=== PATIENT | male | born 2005 | race Caucasian/White ===

== ENCOUNTER 2025-05-29 20:38 | Emergency (ER) | payer OTHER ==
[2025-05-29 21:11] LABS: Absolute Lymphocytes (CBC) 2.1 K/uL (0.7-4.9); Hematocrit 35.6 % (39.6-49.0); Hemoglobin 12.2 g/dL (13.6-17.9); MCH 32.7 pg (27.0-35.0); MCHC 34.3 g/dL (32.0-36.0); MCV 95.4 fL (80-100); MPV 7.9 fL (7.6-11.3); Nucleated Red Blood Cells % 0.0 % (0-0); RBC Red Blood Cell Count 3.74 M/uL (4.33-5.43); White Blood Count 6.10 thou/uL (4.3-10.9)
[2025-05-29 21:12] LABS: Nucleated RBC Absolute Count 0.0 (0-0)
[2025-05-29 21:30] LABS: ALT/SGPT 21.0 U/L (16-61); AST/SGOT 13.0 U/L (15-37); Albumin 3.5 g/dL (3.4-5.0); Albumin/Globulin Ratio 1.0 (1.1-1.8); Alkaline Phosphatase 69.0 U/L (45-117); Anion Gap 6.9 mEq/L (5.0-15.0); BUN Blood Urea Nitrogen 11.0 mg/dL (7-18); Globulin 3.4 g/dL (2.3-3.5); Glucose Level 164.0 mg/dL (74-106); Lipase 21.0 U/L (13-75); Potassium 3.9 mEq/L (3.5-5.1)
--- NOTE | 2025-05-29 21:59 | ER ---
Nurse's Notes [facility] Name: Dada Noel Age: 20 yrs Sex: Male : 2005 Arrival Date: 05/29/2025 Time: 20:38 Bed 8 Private MD: Diagnosis: Abdominal pain, Generalized Presentation: 05/29 20:43 Chief complaint: Patient states: chest pain and abdominal pain with nausea this lg3 morning. 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 250 D10 administered. On arrival to ED BGL 141. Coronavirus screen: Client denies travel out of the [place] in the last 14 days. At this time, the client does not indicate any symptoms associated with coronavirus-19. Ebola Screen: No symptoms or risks identified at this time. Initial Sepsis Screen: Does the patient meet any 2 criteria? No. Patient's initial sepsis screen is negative. Does the patient have a suspected source of infection? No. Patient's initial sepsis screen is negative. Risk Assessment: Do you want to hurt yourself or someone else? Patient reports no desire to harm self or others. Onset of symptoms was May 29, 2025. 20:43 Method Of Arrival: EMS: [facility] lg3 20:43 Acuity: TERRELL 3 lg3 Triage Assessment: 20:45 General: Appears in no apparent distress. comfortable, Behavior is calm, cooperative. lg3 General: Appears unkempt. Pain: Complains of pain in chest and abdomen. EENT: No deficits noted. No signs and/or symptoms were reported regarding the EENT system. Neuro: No deficits noted. Clifford Agitation-Sedation Scale (RASS): 0 - Alert and Calm Level of Consciousness is awake, alert, obeys commands, Oriented to person, place, time, situation. Cardiovascular: No deficits noted. Heart tones S1 S2 present Capillary refill < 3 seconds Clubbing of nail beds is absent JVD is absent Patient's skin is warm and dry. Respiratory: No deficits noted. Airway is patent Respiratory effort is even, unlabored, Respiratory pattern is regular, symmetrical, Breath sounds are clear bilaterally. GI: No deficits noted. Abdomen is flat, non-distended, Reports lower abdominal pain, upper abdominal pain, nausea. : No signs and/or symptoms were reported regarding the genitourinary system. Derm: No deficits noted. No signs and/or symptoms reported regarding the dermatologic system. Skin is intact, is healthy with good turgor, Skin is dry, Skin is normal, Skin temperature is warm. Musculoskeletal: No deficits noted. No signs and/or symptoms reported regarding the musculoskeletal system. Circulation, motion, and sensation intact. Range of motion: intact in all extremities. Historical: - Allergies: 20:45 No Known Allergies; lg3 - Home Meds: 20:45 None [Active]; lg3 - PMHx: 20:45 autism; ADHD; lg3 - PSHx: 20:45 None; lg3 - Immunization history:: Adult Immunizations up to date. - Infectious Disease History:: Denies. - Social history:: Smoking status: Patient denies any tobacco usage or history of. Patient/guardian denies using alcohol, street drugs. Screenin:47 [facility] ED Fall Risk Assessment (Adult) History of falling in the last 3 months, lg3 including since admission No falls in past 3 months (0 pts) Confusion or Disorientation No (0 pts) Intoxicated or Sedated No (0 pts) Impaired Gait No (0 pts) Mobility Assist Device Used No (0 pt) Altered Elimination No (0 pt) Score/Fall Risk Level 0 - 2 = Low Risk Oriented to surroundings, Maintained a safe environment, Educated pt \T\ family on fall prevention, incl call for assistance when getting out of bed, Assessed \T\ reinforced patient's understanding of fall precautions. Abuse screen: Denies threats or abuse. Denies injuries from another. Nutritional screening: No deficits noted. Tuberculosis screening: No symptoms or risk factors identified. Assessment: 20:47 General: see triage assessment. lg3 21:24 Reassessment: Patient appears in no apparent distress at this time. No changes from lg3 previously documented assessment. Patient and/or family updated on plan of care and expected duration. Pain level reassessed. Patient is alert, oriented x 3, equal unlabored respirations, skin warm/dry/pink. 21:59 Reassessment: Patient appears in no apparent distress at this time. No changes from lg3 previously documented assessment. Patient and/or family updated on plan of care and expected duration. Pain level reassessed. Patient is alert, oriented x 3, equal unlabored respirations, skin warm/dry/pink. Patient states feeling better. Patient states symptoms have improved. Vital Signs: 20:43 BP 125 / 74; Pulse 87; Resp 16 S; Temp 98(A); Pulse Ox 100% on R/A; Weight 86.18 kg lg3 (R); Height 6 ft. 5 in. (R); 21:24 BP 121 / 74; Pulse 81; Resp 16 S; Pulse Ox 100% on R/A; lg3 22:00 BP 126 / 71; Pulse 77; Resp 16 S; Pulse Ox 100% on R/A; lg3 20:43 Body Mass Index 22.53 (86.18 kg, 195.58 cm) lg3 ED Course: 20:38 Patient arrived in ED. lg3 20:40 Patricia Khalil RN is Primary Nurse. kb4 20:44 iWlian Means DO is Attending Physician. tt7 20:45 Triage completed. lg3 20:45 Arm band placed on right wrist. lg3 20:47 Patient has correct armband on for positive identification. Placed in gown. Bed in low lg3 position. Call light in reach. Side rails up X 1. Client placed on continuous cardiac and pulse oximetry monitoring. NIBP monitoring applied. manager gyn on. Door closed. Noise minimized. Warm blanket given. Pillow given. 20:47 Maintain EMS IV. Dressing intact. Good blood return noted. Site clean \T\ dry. Gauge \T\ lg 3 site: 18 LAC. Flushed with 10 mL NS. 22:14 No provider procedures requiring assistance completed. IV discontinued, intact, lg3 bleeding controlled, No redness/swelling at site. Pressure dressing applied. Administered Medications: 21:07 Drug: Droperidol IVP 1.25 mg IVP once Route: IVP; Site: left antecubital; lg3 22:00 Follow up: Response: No adverse reaction; RASS: Alert and Calm (0) lg3 21:51 Not Given (Physician Discretion): ativan0.5 mg IVP once lg3 22:14 Drug: Alum-Mag Hydroxide-Simeth PO Suspension (200 mg-200 mg-20 mg/5 mL) 30 ml PO once lg3 Route: PO; 22:14 Follow up: Response: No adverse reaction; Medication administered at discharge. lg3 Medication: 20:47 VIS not applicable for this client. lg3 Point of Care Testing: Blood Glucose: 20:45 Blood Glucose: 141 mg/dL; lg3 Ranges: Outcome: 21:59 Discharge ordered by MD. tt7 22:14 Discharged to home ambulatory, lg3 22:14 Condition: stable 22:14 Discharge instructions given to patient, Instructed on discharge instructions, follow up and referral plans. Demonstrated understanding of instructions, follow-up care, 22:14 Patient left the ED. lg3 Signatures: Nicole Prar RN RN lg3 Patricia Khalil RN RN kb4 Wilian Means DO DO tt7 Corrections: (The following items were deleted from the chart) 20:50 20:43 Chief complaint: Patient states: chest pain and abdominal pain with nausea this lg3 morning. lg3
--- NOTE | 2025-05-29 21:59 | EDPHYS ---
Physician Documentation [facility] Name: Dada Noel Age: 20 yrs Sex: Male : 2005 Arrival Date: 05/29/2025 Time: 20:38 Bed 8 Private MD: ED Physician Wilian Means Historical: - Allergies: 05/29 20:45 No Known Allergies; lg3 - Home Meds: 20:45 None [Active]; lg3 - PMHx: 20:45 autism; ADHD; lg3 - PSHx: 20:45 None; lg3 - Immunization history:: Adult Immunizations up to date. - Infectious Disease History:: Denies. - Social history:: Smoking status: Patient denies any tobacco usage or history of. Patient/guardian denies using alcohol, street drugs. Vital Signs: 20:43 BP 125 / 74; Pulse 87; Resp 16 S; Temp 98(A); Pulse Ox 100% on R/A; Weight 86.18 kg lg3 (R); Height 6 ft. 5 in. (R); 21:24 BP 121 / 74; Pulse 81; Resp 16 S; Pulse Ox 100% on R/A; lg3 22:00 BP 126 / 71; Pulse 77; Resp 16 S; Pulse Ox 100% on R/A; lg3 20:43 Body Mass Index 22.53 (86.18 kg, 195.58 cm) lg3 MDM: 20:44 Medical Screening Exam initiated tt7 05/29 20:54 Order name: Glucose, Ancillary Testing; Complete Time: 21:00 EDMS 05/29 21:01 Order name: CBC with Diff; Complete Time: 21:41 tt7 05/29 21:01 Order name: CMP; Complete Time: 21:41 tt7 05/29 21:01 Order name: Lipase; Complete Time: 21:41 tt7 05/29 21:50 Order name: EKG; Complete Time: 21:50 tt7 05/29 21:01 Order name: IV Saline Lock; Complete Time: 21:03 tt7 05/29 21:01 Order name: Labs collected and sent; Complete Time: 21:03 tt7 05/29 21:50 Order name: EKG - Nurse/Tech; Complete Time: 21:59 tt7 Administered Medications: 21:07 Drug: Droperidol IVP 1.25 mg IVP once Route: IVP; Site: left antecubital; lg3 22:00 Follow up: Response: No adverse reaction; RASS: Alert and Calm (0) lg3 21:51 Not Given (Physician Discretion): ativan0.5 mg IVP once lg3 22:14 Drug: Alum-Mag Hydroxide-Simeth PO Suspension (200 mg-200 mg-20 mg/5 mL) 30 ml PO once lg3 Route: PO; 22:14 Follow up: Response: No adverse reaction; Medication administered at discharge. lg3 Point of Care Testing: Blood Glucose: 20:45 Blood Glucose: 141 mg/dL; lg3 Ranges: Critical Glucose Levels:Adult <50 mg/dl or >400 mg/dl <40 mg/dl or >180 mg/dl Disposition Summary: 05/29/25 21:59 Discharge Ordered Notes: Location: Home tt7 Problem: chronic tt7 Symptoms: have improved tt7 Condition: Stable tt7 Diagnosis - Abdominal pain, Generalized tt7 Followup: tt7 - With: Emergency Department - When: As needed - Reason: Followup: tt7 - With: Private Physician - When: 1 - 2 days - Reason: Recheck today's complaints, Re-evaluation by your physician Discharge Instructions: - Discharge Summary Sheet tt7 - Abdominal Pain, Adult tt7 Forms: - Medication Reconciliation Form tt7 - Antibiotic Education tt7 - Prescription Opioid Use tt7 - Patient Portal Instructions tt7 - Leadership Thank You Letter tt7 Addendum: 06/02/2025 09:30 Addendum: 20-year-old male presents emergency department for epigastric abdominal pain t t7 which started yesterday, described as sharp and burning in character, mild in severity, no other associated symptoms. Constitutional: denies fever Respiratory: denies SOB, cough Cardiovascular: denies chest pain, palpitations GI: Reports abdominal pain, denies nausea, vomiting Neuro: denies focal weakness Skin: denies rash Constitutional: vital signs reviewed, well appearing Head: normocephalic, atraumatic Eyes: no conjunctival injection, anicteric sclerae ENMT: mucus membranes moist Neck: trachea midline, no JVD, no meningismus Respiratory: normal respiratory effort, no accessory muscle use, no wheezing or rales Cardiovascular: Regular rate and rhythm, no murmurs, no rubs, no lower extremity edema Abdomen: soft, nondistended, nontender, no guarding or rebound, negative Covington's sign, no McBurney point tenderness MSK: normal ROM of extremities, no gross deformities Skin: warm, dry, intact, no rash Neuro: alert and oriented with appropriate mental status, normal speech, follows commands, no focal neurologic deficits Psych: appropriate mood and affect Patient well-appearing, vital signs stable, physical exam reassuring, laboratory studies ordered which are overall reassuring, no acute findings, was treated symptomatically, patient was reassessed and significantly improved, after completion of the patient's emergency department evaluation, I do not suspect a life-threatening or disabling process. Patient is medically stable and not in need of emergent medical intervention. I had a detailed discussion with the patient regarding the historical points, exam findings, emergency department evaluation, diagnostic results, and the discharge diagnosis. I instructed the patient on outpatient management of their condition. I discussed the need for outpatient follow-up with a primary care physician. I informed the patient on return precautions, including the need to return to the ED if symptoms do not improve, worsen, or if there are any questions or concerns that arise at home. The patient was discharged in stable condition . Co-signature as Attending Physician, Wilian Means DO. Signatures: Dispatcher [employer] BIJANPA Nicole Parr RN RN lg3 Wilian Means DO DO tt7
[2025-05-29] MEDS ORDERED: MAGNES/ALUMIN/SIMET 30ML UCUP ONE (22:11)
[2025-05-29 22:42] VITALS: BP 126/71; TEMP 98; O2SAT 100
== END 2025-05-29 22:14 | disposition home or self-care (01) ==
LOC: ER 20:38
DX: R10.84 Generalized abdominal pain (principal); R07.9 Chest pain, unspecified
CPT/HCPCS: 93005; 85025; 36415; 82947; 83690; 80053; 96374; 99285; J1790

== ENCOUNTER 2025-05-29 23:42 | Emergency (ER) | payer OTHER ==
--- NOTE | 2025-05-30 00:10 | ER ---
Nurse's Notes [facility] Name: Dada Noel Age: 20 yrs Sex: Male : 2005 Arrival Date: 05/29/2025 Time: 23:42 Bed IW1 Private MD: Diagnosis: Encounter for general adult medical examination without abnormal findings Presentation: 05/29 23:50 Onset of symptoms was May 30, 2025. ha1 23:57 Chief complaint: Patient states: ABDOMINAL PAIN. Coronavirus screen: Client denies ha1 travel out of the [place] in the last 14 days. Ebola Screen: No symptoms or risks identified at this time. Initial Sepsis Screen: Does the patient meet any 2 criteria? No. Patient's initial sepsis screen is negative. Does the patient have a suspected source of infection? No. Patient's initial sepsis screen is negative. Risk Assessment: Do you want to hurt yourself or someone else? Patient reports no desire to harm self or others. 23:57 Method Of Arrival: Ambulatory ha1 23:57 Acuity: TERRELL 4 ha1 Triage Assessment: 05/30 00:19 General: Appears comfortable, Behavior is calm, cooperative. Pain: Complains of pain in ha1 abdomen Unable to use pain scale. FLACC scale score is 0 out of 10. Neuro: Level of Consciousness is awake, alert, obeys commands, Oriented to person, place, situation. Cardiovascular: Capillary refill < 3 seconds Patient's skin is warm and dry. Respiratory: Airway is patent Respiratory effort is even, unlabored, Respiratory pattern is regular, symmetrical. GI: Abdomen is round non-distended, Reports lower abdominal pain, upper abdominal pain. Historical: - Allergies: 05/29 23:59 No Known Allergies; ha1 - PMHx: 23:59 adhd; Autism; ha1 - Immunization history:: Adult Immunizations unknown. - Infectious Disease History:: Denies. - Social history:: Smoking status: unknown. Screenin:59 [facility] ED Fall Risk Assessment (Adult) History of falling in the last 3 months, ha1 including since admission No falls in past 3 months (0 pts) Confusion or Disorientation Yes (5 pts) Intoxicated or Sedated No (0 pts) Impaired Gait No (0 pts) Mobility Assist Device Used No (0 pt) Altered Elimination No (0 pt) Score/Fall Risk Level 3 or more points = High Risk Oriented to surroundings, Maintained a safe environment, Educated pt \T\ family on fall prevention, incl call for assistance when getting out of bed, Assessed \T\ reinforced patient's understanding of fall precautions, Hourly rounding (assess needs \T\ fall precautionary measures) done. Abuse screen: Denies threats or abuse. Denies injuries from another. Nutritional screening: No deficits noted. Tuberculosis screening: No symptoms or risk factors identified. Vital Signs: 23:57 BP 132 / 75; Pulse 97; Resp 18 S; Temp 97.8(O); Pulse Ox 100% on R/A; Weight 86.18 kg; ha1 Height 6 ft. 2 in. ; 23:57 Body Mass Index 24.39 (86.18 kg, 187.96 cm) ha1 ED Course: 23:46 Patient arrived in ED. im 23:49 Patient has correct armband on for positive identification. ha1 23:51 Segundo Cox PA-C is PHCP. cp 23:52 Wilian Means DO is Attending Physician. cp 23:59 Triage completed. ha1 1004 00:09 Wilian Means DO is Attending Physician. tt7 00:20 Arm band placed on right wrist. ha1 00:21 No provider procedures requiring assistance completed. Patient did not have IV access ha1 during this emergency room visit. 00:23 Provided Education on: FOLLOW UP WITH PCP. ha1 Administered Medications: No medications were administered Medication: 00:23 VIS not applicable for this client. ha1 Outcome: 00:10 Discharge ordered by . tt7 00:22 Discharged to home ambulatory, ha1 00:22 Condition: stable 00:22 Discharge instructions given to patient, Instructed on discharge instructions, follow up and referral plans. Demonstrated understanding of instructions, follow-up care, 00:24 Patient left the ED. ha1 Signatures: Segundo Cox PA-C PA-C cp Ayala, Heidy, RN RN ha1 Darya Hernandez Wilian Means DO DO tt7
[2025-05-30 00:35] VITALS: BP 132/75; TEMP 97.8; O2SAT 100
--- NOTE | 2025-06-02 09:29 | EDPHYS ---
Physician Documentation [facility] Name: Dada Noel Age: 20 yrs Sex: Male : 2005 Arrival Date: 05/29/2025 Time: 23:42 Bed IW1 Private MD: ED Physician Wilian Means Historical: - Allergies: 05/29 23:59 No Known Allergies; ha1 - PMHx: 23:59 adhd; Autism; ha1 - Immunization history:: Adult Immunizations unknown. - Infectious Disease History:: Denies. - Social history:: Smoking status: unknown. Vital Signs: 23:57 BP 132 / 75; Pulse 97; Resp 18 S; Temp 97.8(O); Pulse Ox 100% on R/A; Weight 86.18 kg; ha1 Height 6 ft. 2 in. ; 23:57 Body Mass Index 24.39 (86.18 kg, 187.96 cm) ha1 MDM: 05/30 00:09 Medical Screening Exam initiated tt7 Administered Medications: No medications were administered Disposition Summary: 05/30/25 00:10 Discharge Ordered Notes: Location: Home tt7 Problem: an ongoing problem tt7 Symptoms: are unchanged tt7 Condition: Stable tt7 Diagnosis - Encounter for general adult medical examination without abnormal findings tt7 Followup: tt7 - With: Emergency Department - When: As needed - Reason: Followup: tt7 - With: Private Physician - When: 1 - 2 days - Reason: Recheck today's complaints, Re-evaluation by your physician Discharge Instructions: - Discharge Summary Sheet tt7 - Health Maintenance, Male tt7 Forms: - Medication Reconciliation Form tt7 - Antibiotic Education tt7 - Prescription Opioid Use tt7 - Patient Portal Instructions tt7 - Leadership Thank You Letter tt7 Addendum: 06/02/2025 09:27 Addendum: 20-year-old male presents emergency department for epigastric abdominal pain t t7 which started yesterday, described as sharp and burning in character, mild in severity, no other associated symptoms. Constitutional: denies fever Respiratory: denies SOB, cough Cardiovascular: denies chest pain, palpitations GI: Reports abdominal pain, denies nausea, vomiting Neuro: denies focal weakness Skin: denies rash Constitutional: vital signs reviewed, well appearing Head: normocephalic, atraumatic Eyes: no conjunctival injection, anicteric sclerae ENMT: mucus membranes moist Neck: trachea midline, no JVD, no meningismus Respiratory: normal respiratory effort, no accessory muscle use, no wheezing or rales Cardiovascular: Regular rate and rhythm, no murmurs, no rubs, no lower extremity edema Abdomen: soft, nondistended, nontender, no guarding or rebound, negative Covington's sign, no McBurney point tenderness MSK: normal ROM of extremities, no gross deformities Skin: warm, dry, intact, no rash Neuro: alert and oriented with appropriate mental status, normal speech, follows commands, no focal neurologic deficits Psych: appropriate mood and affect Patient well-appearing, vital signs stable, physical exam reassuring, after completion of the patient's emergency department evaluation, I do not suspect a life-threatening or disabling process. Patient is medically stable and not in need of emergent medical intervention. I had a detailed discussion with the patient regarding the historical points, exam findings, emergency department evaluation, diagnostic results, and the discharge diagnosis. I instructed the patient on outpatient management of their condition. I discussed the need for outpatient follow-up with a primary care physician. I informed the patient on return precautions, including the need to return to the ED if symptoms do not improve, worsen, or if there are any questions or concerns that arise at home. The patient was discharged in stable condition . Co-signature as Attending Physician, Wilian Means DO. Signatures: Rosario Gustafson RN RN ha1 Wilian Means DO DO tt7 Corrections: (The following items were deleted from the chart) 09:30 09:27 Addendum: 20-year-old male presents emergency department for epigastric abdominal tt7 pain which started yesterday, described as sharp and burning in character, mild in severity, no other associated symptoms. Constitutional: denies fever Respiratory: denies SOB, cough Cardiovascular: denies chest pain, palpitations GI: Reports abdominal pain, denies nausea, vomiting Neuro: denies focal weakness Skin: denies rash Constitutional: vital signs reviewed, well appearing Head: normocephalic, atraumatic Eyes: no conjunctival injection, anicteric sclerae ENMT: mucus membranes moist Neck: trachea midline, no JVD, no meningismus Respiratory: normal respiratory effort, no accessory muscle use, no wheezing or rales Cardiovascular: Regular rate and rhythm, no murmurs, no rubs, no lower extremity edema Abdomen: soft, nondistended, nontender, no guarding or rebound, negative Covington's sign, no McBurney point tenderness MSK: normal ROM of extremities, no gross deformities Skin: warm, dry, intact, no rash Neuro: alert and oriented with appropriate mental status, normal speech, follows commands, no focal neurologic deficits Psych: appropriate mood and affect Patient well-appearing, vital signs stable, physical exam reassuring, laboratory studies ordered which are overall reassuring, no acute findings, was treated symptomatically, patient was reassessed and significantly improved, after completion of the patient's emergency department evaluation, I do not suspect a life-threatening or disabling process. Patient is medically stable and not in need of emergent medical intervention. I had a detailed discussion with the patient regarding the historical points, exam findings, emergency department evaluation, diagnostic results, and the discharge diagnosis. I instructed the patient on outpatient management of their condition. I discussed the need for outpatient follow-up with a primary care physician. I informed the patient on return precautions, including the need to return to the ED if symptoms do not improve, worsen, or if there are any questions or concerns that arise at home. The patient was discharged in stable condition . tt7
== END 2025-05-30 00:24 | disposition home or self-care (01) ==
LOC: ER 23:42
DX: Z71.1 Person with feared health complaint in whom no diagnosis is made (principal)
CPT/HCPCS: 99282